=== PATIENT | female | born 1990 | race African-American/Black ===

== ENCOUNTER 2022-12-11 13:15 | Emergency (ER) | payer OTHER ==
[~2022-12-11] VITALS: Ht 165.1 cm; Wt 104.0 kg
[2022-12-11 13:23] VITALS: BP 160/82; PULSE 85; RESP 20; TEMP 98.1; O2SAT 99
== END 2022-12-11 14:39 | disposition home or self-care (01) ==
LOC: ER 13:15
DX: S13.4XXA Sprain of ligaments of cervical spine, initial encounter (principal); V89.2XXA Person injured in unspecified motor-vehicle accident, traffic, initial encounter; Y93.89 Activity, other specified; Y92.89 Other specified places as the place of occurrence of the external cause; Y99.8 Other external cause status
CPT/HCPCS: 99281